=== PATIENT | male | born 1980 | race Caucasian/White ===

== ENCOUNTER 2019-07-08 16:25 | Emergency (ER) | payer BC ==
[~2019-07-08] VITALS: Ht 193 cm; Wt 99.3 kg
[2019-07-08] MEDS ORDERED: IV NORMAL SALINE 1,000ML 1,000 ML IV SCH (17:15)
[2019-07-08] MEDS ORDERED: MORPHINE SULFATE 4 MG/ML DISP.SYRIN. IV/SQ PRN (17:15)
[2019-07-08 17:39] VITALS: BP 116/84
[2019-07-08] MEDS ORDERED: OXYC1TAB19 PO (17:39)
--- NOTE | 2019-07-08 17:41 | PHYS DOC ---
Adult General Chief Complaint Chief Complaint: CHEST PAIN-NON CARDIAC NATURE HPI HPI Patient is a 38-year-old male who presents with complaint of right sided chest pain, substernal burning and shortness of breath that started a couple of days ago. Patient was seen at [facility] yesterday. Patient was diagnosed with pulmonary embolism and was ultimately discharged home with prescription for Xarelto.[] Review of Systems Review of Systems Constitutional: Denies fever or chills [] Respiratory: Complains of cough and shortness of breath [] Cardiovascular: No additional information not addressed in HPI [] Musculoskeletal: Denies back pain or joint pain [] Integument: Denies rash or skin lesions [] Neurologic: Denies headache, focal weakness or sensory changes [] All other systems were reviewed and found to be within normal limits, except as documented in this note. Current Medications Current Medications Current Medications Medications (Trade) Dose Ordered Sig/Devon Start Time Stop Time Status Last Admin Dose Admin Morphine Sulfate (Morphine 4mg Syringe) 4 mg PRN Q15MIN PRN 07/08/19 17:15 07/09/19 17:14 UNV Sodium Chloride 1,000 ml @ 100 mls/hr Q10H 07/08/19 17:15 07/09/19 03:14 UNV Allergies Allergies Allergies Coded Allergies Type Severity Reaction Last Updated Verified Penicillins Allergy Unknown 07/08/19 Yes Physical Exam Physical Exam Constitutional: Well developed, well nourished, no acute distress, non-toxic appearance. [] HENT: Normocephalic, atraumatic, bilateral external ears normal, oropharynx moist, no oral exudates, nose normal. [] Eyes: PERRLA, EOMI, conjunctiva normal, no discharge. [] Neck: Normal range of motion, no tenderness, supple, no stridor. [] Cardiovascular:Heart rate regular rhythm, no murmur [] Lungs & Thorax: Bilateral breath sounds clear to auscultation [] Abdomen: Bowel sounds normal, soft, no tenderness, no masses, no pulsatile masses. [] Skin: Warm, dry, no erythema, no rash. [] Back: No tenderness, no CVA tenderness. [] Extremities: No tenderness, no cyanosis, no clubbing, ROM intact, no edema. [] Neurologic: Alert and oriented X 3, normal motor function, normal sensory func tion, no focal deficits noted. [] Psychologic: Affect normal, judgement normal, mood normal. [] EKG EKG [] Radiology/Procedures Radiology/Procedures [] Course & Med Decision Making Course & Med Decision Making Pertinent Labs and Imaging studies reviewed. (See chart for details) Patient's case was discussed with Dr. Soriano and he feels that since patient has been started on Xarelto, patient is being appropriately treated and may be discharged home with pain medication. Plan discussed with patient and patient is in agreement with discharge home with medication for pain. Patient will follow- up with primary care provider in the next week. Dragon Disclaimer Dragon Disclaimer This electronic medical record was generated, in whole or in part, using a voice recognition dictation system. Departure Departure: Impression: Primary Impression: Pulmonary embolism Disposition: HOME, SELF-CARE Condition: STABLE Referrals: PCP,NO (PCP) Patient Instructions: Pulmonary Embolus Scripts Oxycodone Hcl/Acetaminophen (PERCOCET 7.5-325 MG TABLET ) 1 Each Tablet 1 TAB PO PRN QID PRN for PAIN MDD 4 Tablet(s) for 5 Days, #20 TAB 0 Refills Prov: MICHELL PALOMINO Jr. DO 07/08/19 Problem Qualifiers Primary Impression: Pulmonary embolism Pulmonary embolism type: single subsegmental (without acute cor pulmonale) Qualified Codes: I26.93 - Single subsegmental pulmonary embolism without acute cor pulmonale MICHELL PALOMINO Jr. DO Jul 08, 2019 17:41
[2019-07-08] MEDS ORDERED: oxyCODONE/APAP 7.5/325 1 TAB TABLET PO ONE (18:00)
--- NOTE | 2019-07-08 18:06 | RAD ---
AP chest. HISTORY: Chest wall pain AP view was taken of the chest. Heart is normal in size without heart failure. There is no effusion. There is density in the right lateral lung base which could be of pleural density or superimposed artifact or minimal infiltrate. PA and lateral views of be of benefit for better evaluation. IMPRESSION: 1. Density in the lateral chest base on the right follow-up PA and lateral views would be of benefit. 2. No other infiltrates. Electronically signed by: Michael Hopper MD (07/08/2019 6:03 PM) [facility] [id number]
--- NOTE | 2019-07-10 02:26 | EKG ---
[address] [address] Test Date: 2019-07-08 Test Time: 17:28:58 Pat Name: ELIANE HYMAN Department: Room: Gender: M [employer]: GUILLERMO : 1980 Requested By: MICHELL PALOMINO Order Number: [id number] Reading MD: Measurements Intervals Model Rate: 77 P: 53 IL: 160 QRS: 41 QRSD: 88 T: 34 QT: 358 QTc: 407 Interpretive Statements SINUS RHYTHM NORMAL ECG RI6.01 No previous ECG available for comparison
== END 2019-07-08 17:52 | disposition home or self-care (01) ==
LOC: ER 16:25
DX: I26.93 Single subsegmental thrombotic pulmonary embolism without acute cor pulmonale (principal); Z88.0 Allergy status to penicillin
CPT/HCPCS: 71045; 93005; 99283; 99284